=== PATIENT | female | born 1985 | race African-American/Black ===

== ENCOUNTER 2017-05-10 17:19 | Emergency (ER) | payer SELFPAY ==
[~2017-05-10] VITALS: Ht 167.6 cm; Wt 61.2 kg
[2017-05-10 17:40] VITALS: BP 120/76
[2017-05-10] MEDS ORDERED: diphenhdrAMINE HCL 50 MG/1 ML VL IM ONE ×2 (20:45→21:00)
[2017-05-10] MEDS ORDERED: methylPREDNISolone SOD SUCC 125 MG/2 ML VL IM ONE ×2 (20:45→21:00)
== END 2017-05-10 21:41 | disposition home or self-care (01) ==
LOC: ER 17:24
DX: T78.40XA Allergy, unspecified, initial encounter (principal)
CPT/HCPCS: 96372; 99284; J1200; J2930